=== PATIENT | female | born 1995 ===

== ENCOUNTER 2022-05-16 16:55 | Inpatient (IN) | payer OTHER ==
[2022-05-16] VITALS (17 sets, daily range): BP systolic 120–154; BP diastolic 58–88
[~2022-05-16] VITALS: Ht 175.3 cm; Wt 81.8 kg
[2022-05-16] MEDS ORDERED: PRENTAB9 PO (17:22)
[2022-05-16] MEDS ORDERED: HOME MED LIST COMPLETE! XX SCH (17:25)
[2022-05-16] MEDS ORDERED: PENICILLIN G POTASSIUM IV 5 MU in D5W MINI-BAG PLUS 100 ML IV STA (18:07)
[2022-05-16] MEDS ORDERED: OXYTOCIN DRIP 30 UNITS in IV 1 EA IV PRN ×4 (18:10)
[2022-05-16] MEDS ORDERED: TRANEXAMIC ACID INJection 1,000 MG in NS 100 ML IV PRN (18:10)
[2022-05-16] MEDS ORDERED: METHYLERGONOVINE MALEATE 0.2 MG/ML VIAL (J2210) IM PRN (18:10)
[2022-05-16] MEDS ORDERED: LACTATED RINGER'S 1000 ML IV ONE (18:10)
[2022-05-16] MEDS ORDERED: LR 1,000 ML IV SCH (18:10)
[2022-05-16] MEDS ORDERED: OXYTOCIN INJ 10 UNITS/ML VIAL (J2590) IV PRN (18:10)
[2022-05-16 18:44] LABS: HEMATOCRIT 39.3 % (36.0-47.0); HEMOGLOBIN 12.7 g/dl (12.0-15.5); MEAN CORPUSCULAR HEMOGLOBIN 29.1 pg (27.0-33.0); MEAN CORPUSCULAR HGB CONC 32.3 g/dl (32.0-36.5); MEAN CORPUSCULAR VOLUME 89.9 fl (80.0-96.0); PLATELET COUNT, AUTOMATED 175 10^3/uL (150-450); RED BLOOD COUNT 4.37 10^6/uL (4.00-5.40); WHITE BLOOD COUNT 9.5 10^3/uL (4.0-10.0)
[2022-05-16] MEDS ORDERED: EPIDURAL/PCA KEYS XX PRN (21:05)
[2022-05-16] MEDS ORDERED: FENTANYL/ROPIVACAINE/NACL BAG 100 ML EPIDURAL SCH (21:05)
[2022-05-16] MEDS ORDERED: ONDANSETRON 4MG 2ML VIAL IV PRN (21:05)
[2022-05-16] MEDS ORDERED: ePHEDrine SULFATE 25 MG/5 ML(5MG/ML) SYRINGE IVP PRN (21:05)
[2022-05-16] MEDS ORDERED: diphenhydrAMINE 50MG/ML VIAL (J1200) IV PRN (21:05)
[2022-05-16] MEDS ORDERED: LR 500 ML IV PRN (21:05)
[2022-05-16] MEDS ORDERED: NALOXONE INJ 0.4MG/1ML VIAL (J2310 PER 1MG) IV PRN (21:05)
[2022-05-16] MEDS ORDERED: FENTANYL 2MCG/ML ROPIVACAINE 0.2% IN 0.9% NACL 100ML IVBAG As Ordered ONE (21:10)
[2022-05-16] MEDS ORDERED: PENICILLIN G POTASSIUM IV 2.5 MU in IV 1 EA IV SCH (23:00)
[2022-05-17] VITALS (20 sets, daily range): BP systolic 113–154; BP diastolic 52–79
[2022-05-17 03:18] LABS: CORD GAS ABE A -10.1; CORD GAS ABE V -8.6; CORD GAS HCO3 V 20.3 MEQ/L; CORD GAS O2 SAT V 27.7 %; CORD GAS PCO2 A 78.3 mmHg; CORD GAS PCO2 V 54.5 mmHg; CORD GAS PH A 7.067 UNITS; CORD GAS PH V 7.188 UNITS; CORD GAS PO2 A 11.8 mmHg; CORD GAS PO2 V 18.2 mmHg; CORD GAS SBC V 16.1 MEQ/L; CORD GAS TCO2 A 24.4 MEQ/L; CORD GAS TCO2 V 21.9 MEQ/L
[2022-05-17] MEDS ORDERED: METHYLERGONOVINE MALEATE 0.2 MG/ML VIAL (J2210) IM PRN (03:35)
[2022-05-17] MEDS ORDERED: OXYTOCIN DRIP 30 UNITS in IV 1 EA IV ONE (03:35)
[2022-05-17] MEDS ORDERED: ANUSOL HC CREAM 30GM TOP PRN (03:35)
[2022-05-17] MEDS ORDERED: ACETAMINOPHEN TAB 650MG DOSE (2X325MG) PO PRN (03:35)
[2022-05-17] MEDS ORDERED: ACETAMINOPHEN 500 MG TAB PO PRN (03:35)
[2022-05-17] MEDS ORDERED: OXYTOCIN INJ 10 UNITS/ML VIAL (J2590) IV ONE (03:35)
[2022-05-17] MEDS ORDERED: DOCUSATE SODIUM 100MG CAPSULE PO PRN (03:35)
[2022-05-17] MEDS ORDERED: METHYLERGONOVINE MALEATE 0.2 MG TAB PO PRN (03:35)
[2022-05-17] MEDS ORDERED: OXYTOCIN DRIP 30 UNITS in IV 1 EA IV SCH ×2 (03:35→06:05)
[2022-05-17] MEDS ORDERED: LR 1,000 ML IV SCH (03:35)
[2022-05-17] MEDS ORDERED: MOM 30ML SUSPENSION UDC PO PRN (03:35)
[2022-05-17] MEDS ORDERED: RHOGAM 300 MCG (1500 IU) INJ (J2790) IM SCH (03:35)
[2022-05-17] MEDS ORDERED: DIBUCAINE 1% OINTMENT 30GM TOP PRN (03:35)
[2022-05-17] MEDS ORDERED: OXYTOCIN INJ 10 UNITS/ML VIAL (J2590) IV STA (05:53)
[2022-05-17] MEDS: IBUPROFEN 600MG TAB PO PRN ×2 (06:06→17:12)
[2022-05-17] MEDS ORDERED: OXYTOCIN 30 UNITS IN 0.9% NaCl 500ML IV BAG (J2590) ONE (06:37)
[2022-05-17] MEDS: PRENATAL VITAMINS CHEWABLE TABLET PO SCH (10:01)
[2022-05-17] MEDS: METHYLERGONOVINE MALEATE 0.2 MG TAB PO SCH ×3 (10:10→22:40)
[2022-05-18] MEDS: METHYLERGONOVINE MALEATE 0.2 MG TAB PO SCH ×2 (04:08→10:00)
[2022-05-18 06:00] VITALS: BP 121/56
[2022-05-18] MEDS ORDERED: COLA100C5 PO (06:33)
[2022-05-18] MEDS ORDERED: IBUP-1022 PO (06:33)
[2022-05-18] MEDS ORDERED: ACET1TAB55 PO (06:33)
[2022-05-18 06:49] LABS: HEMATOCRIT 39.6 % (36.0-47.0); HEMOGLOBIN 12.7 g/dl (12.0-15.5); MEAN CORPUSCULAR HEMOGLOBIN 29.1 pg (27.0-33.0); MEAN CORPUSCULAR HGB CONC 32.1 g/dl (32.0-36.5); MEAN CORPUSCULAR VOLUME 90.8 fl (80.0-96.0); PLATELET COUNT, AUTOMATED 158 10^3/uL (150-450); RED BLOOD COUNT 4.36 10^6/uL (4.00-5.40); WHITE BLOOD COUNT 12.5 10^3/uL (4.0-10.0)
[2022-05-18] MEDS: PRENATAL VITAMINS CHEWABLE TABLET PO SCH (07:48)
[2022-05-19] MEDS ORDERED: MEASLES,MUMPS,RUBELLA VACCINE INJ (MMR-II) (90707) SC.IMMUN ONE (09:00)
== END 2022-05-18 17:42 | disposition home or self-care (01) | DRG 807 ==
LOC: M LDO 16:55 → M LDI 17:51 → M OBS 05-17 11:23
PROVIDERS: ADMIT Obstetrics & Gynecology; ATTEND Obstetrics & Gynecology
PROC: 10D07Z6 Extraction of Products of Conception, Vacuum, Via Natural or Artificial Opening (ICD-10-PCS; principal; 2022-05-17)
DX: O99.824 Streptococcus B carrier state complicating childbirth (principal); Z37.0 Single live birth; Z3A.40 40 weeks gestation of pregnancy; O77.0 Labor and delivery complicated by meconium in amniotic fluid; O72.1 Other immediate postpartum hemorrhage